=== PATIENT | female | born 1955 | race Caucasian/White ===

== ENCOUNTER 2016-05-19 10:24 | Emergency (ER) | payer MEDICAID ==
[2016-05-19 10:39] VITALS: BP 182/82; PULSE 52; RESP 16; TEMP 99.3; O2SAT 100
[2016-05-19] MEDS ORDERED: ONDANSETRON 4 MG/2 ML VIAL IVP ONE ×2 (11:11→16:51)
[2016-05-19] MEDS ORDERED: NS 1,000 ML IV ONE ×2 (11:12→12:55)
--- NOTE | 2016-05-19 11:21 | UCPHY ---
H & P Patient Type: New Chief Complaint Nursing Narrative: VOMITING SINCE 7 PM, CYCLIC VOMITING PATIENT , USES MEDICAL THC HPI/ROS: CHIEF COMPLAINT: Vomiting HISTORY OF PRESENT ILLNESS: This patient is a 60 year old woman, with a history of ulcerative colitis s/p ileostomy and cyclic vomiting syndrome, presenting with acute persistent vomiting, onset 7pm last night (approximately 15 hours ago ). She believes her vomiting started because she used less medical marijuana than she typically uses when her brother came to visit. Her symptoms are consistent with her cyclic vomiting presentation. Her ileostomy is functioning normally. She denies fever. She does not suspect that she is obstructed. She is followed by Santi Gonsales. He prescribes her 4mg Zofran, 1mg Lorazepam, and 25mg Chlorpromazine to take when she starts a cyclic vomiting pattern. She took the Zofran at home, but did not take the other two medications. Symptoms are moderate in severity. REVIEW OF SYSTEMS: A ten point review of systems was performed and is negative with the exception of the items mentioned in the HPI. Source: Patient Exam Limitations: No limitations - Personal History Current Tetanus Diphtheria and Acellular Pertussis (TDAP): Unsure - Medical/Surgical History Hx Asthma: No Hx Chronic Respiratory Disease: No Hx Diabetes: No Hx Cardiac Disease: No Hx Renal Disease: No Hx Cirrhosis: No Hx Alcoholism: No Hx HIV/AIDS: No Hx Splenectomy or Spleen Trauma: No Other PMH: ILEOSTOMY, L HIP REPLACEMENT - Family History Significant Family History: No pertinent family hx - Social History Smoking Status: Never smoked Alcohol Use: None Drug Use: Marijuana - Physical Exam Exam: General Appearance: Alert. Vital signs reviewed. BP 182/82 at triage. Eyes: Pupils equal and round, no conjunctival injection, no discharge. Anicteric. ENT, Mouth: Mucous membranes are moist, no oropharyngeal erythema or edema. Neck: No lymphadenopathy, supple. Respiratory: Lungs are clear to auscultation; no wheezes, rales, or rhonchi. Cardiovascular: Regular rate and rhythm; no murmur, rub, or gallop. Gastrointestinal: Abdomen is soft, mild epigastric tenderness, no masses or organomegaly, bowel sounds normal, ileostomy in place right abdomen, ileostomy site clean and dry. Skin: Warm and dry, no rashes on exposed skin, normal color. Back: Nontender to palpation over the thoracolumbar spine. No CVAT. Extremities: No lower extremity edema, no calf tenderness or swelling. Neurological: Alert and oriented. Moving all four extremities easily and equally. Psychiatric: Normal affect. Constitutional: Initial Vital Signs Temperature (C) 37.4 C 05/19/16 10:34 Heart Rate 52 L 05/19/16 10:34 Respiratory Rate 16 05/19/16 10:34 Blood Pressure 182/82 H 05/19/16 10:34 O2 Sat (%) 100 05/19/16 10:34 O2 Delivery Mode Room Air Allergies/Adverse Reactions: GLUTEN INTOLERANT Allergy (Severe, Uncoded 05/19/16 10:39) JOINT PAIN / STIFFNESS Home Medications: Medication Instructions Recorded Chlorpromazine HCl 05/19/16 LORAZEPAM 05/19/16 Ondansetron 05/19/16 Medical Decision Making ED Course/Re-evaluation: This patient presents with persistent vomiting, onset last night. History is significant for cyclic vomiting syndrome and ileostomy. She has no abdominal pain (aside from muscular discomfort from vomiting), bowel sounds are normal, and ileostomy is functioning properly. I have low suspicion for bowel obstruction. Her symptoms are consistent with her typical cyclical vomiting syndrome. An IV has been established. She has received 4mg IV Zofran and 1L IV normal saline. Her vomiting has improved after receiving the IV Zofran. She also received IV Ativan. 12:10 PM. Asleep. 1255: Re-evaluation. Patient is still asleep. No recurrent vomiting. 1340: Patient is still sleeping. I have woken her. She is very drowsy, falls asleep mid conversation. She denies complaints of nausea. Abdomen remains soft and nontender. The patient will be woken up more and road tested. 1430: While getting dressed to leave, the patient tried an ice chip and began vomiting again. IV Haldol has been administered. 4:00 p.m.: She is feeling much better after the Haldol. No further vomiting. She is tolerating ice chips. She has been up to the bathroom. I feel she is well enough to return home. On reexamination abdomen is soft and nontender. I do not suspect bowel obstruction. Differential Diagnosis: I considered a differential diagnosis that includes but is not limited to cyclic vomiting, gastritis, pancreatitis, cholecystitis, pyelonephritis, gastroenteritis, and bowel obstruction. - Data Points Medications Given: Discontinued Medications Haloperidol Lactate (Haldol Injection) 2 mg IVP EDNOW ONE Stop: 05/19/16 14:19 Last Admin: 05/19/16 14:48 Dose: 2 mg Sodium Chloride (Ns) 1,000 mls @ 3,000 mls/hr IV ONCE ONE Stop: 05/19/16 11:31 Last Admin: 05/19/16 11:12 Dose: 1,000 mls Sodium Chloride (Ns) 1,000 mls @ 0 mls/hr IV ONCE ONE PRN Reason: Wide Open Stop: 05/19/16 12:56 Last Admin: 05/19/16 12:57 Dose: 1,000 mls Ketorolac Tromethamine (Toradol) 15 mg IVP ONCE ONE Stop: 05/19/16 11:39 Last Admin: 05/19/16 11:49 Dose: 15 mg Lorazepam (Ativan Injection) 1 mg IVP EDNOW ONE Stop: 05/19/16 11:38 Last Admin: 05/19/16 11:50 Dose: 1 mg Ondansetron HCl (Zofran) 4 mg IVP EDNOW ONE Stop: 05/19/16 11:12 Last Admin: 05/19/16 11:13 Dose: 4 mg Ondansetron HCl (Zofran) 4 mg IVP EDNOW ONE Stop: 05/19/16 16:52 Last Admin: 05/19/16 16:54 Dose: 4 mg Departure - Departure Disposition: Home, Routine, Self-Care Clinical Impression: Cyclical vomiting syndrome Qualifiers: Vomiting Intractability: non-intractable Nausea presence: with nausea Qualified Code(s): G43.A0 - Cyclical vomiting, not intractable Condition: Good Instructions: Acute Nausea and Vomiting (ED) Additional Instructions: Clear liquids, small sips of fluids, and gradual diet advancement as tolerate. Take your Zofran, Ativan, and Chlorpromazine, as prescribed, as needed for recurrent symptoms. Return for intractable vomiting, abdominal pain, fever, or other concerns. Referrals: Santi Gonsales MD [Primary Care Provider] - As per Instructions - PQRS PQRS Measurement: Does not apply. Report Scribed for: Samantha Lee Report Scribed by: Ping Hill Date of Report: 05/19/16 Time of Report: 11:27 Physician Review and Approval Statement: 05/19/16 16:05 Portions of this note were transcribed by the medical reviewer. I, Dr. Samantha Lee, personally performed the history, physical exam, and medical decision- making; and confirmed the accuracy of the information in the transcribed note.
[2016-05-19] MEDS ORDERED: LORazepam 2 MG/ML INJ IVP ONE (11:37)
[2016-05-19] MEDS ORDERED: KETOROLAC 15 MG/1 ML SDV IVP ONE (11:38)
[2016-05-19] MEDS ORDERED: HALOPERIDOL LACT 5 MG/ML INJ IVP ONE (14:18)
== END 2016-05-19 17:30 | disposition home or self-care (01) ==
LOC: CED 10:24
DX: G43.A0 Cyclical vomiting, in migraine, not intractable (principal); Z93.2 Ileostomy status; Z96.642 Presence of left artificial hip joint
CPT/HCPCS: 96361-PO; 96374-PO; 96375-PO; 96376-PO; 99205-PO; G0463-PO; J1885; J2060; J2405

== ENCOUNTER 2016-05-23 11:40 | Inpatient (IN) | payer MEDICAID ==
--- NOTE | 2016-05-23 12:02 | EDPHY ---
H & P Stated Complaint: N/V since Saturday daquan;seen at [facility] on Sat;emesis dark;dark stool in ileostomy Time Seen by Provider: 05/23/16 11:46 HPI/ROS: CHIEF COMPLAINT: Continued nausea, black stools HISTORY OF PRESENT ILLNESS: 60-year-old female history of ulcerative colitis post ileostomy 1985 secondary to multiple malignant lesions and Or:, history of cyclic vomiting syndrome, seen at the [facility] 4 days ago for complaints of vomiting I which point she was given Haldol, antiemetic, IV hydration and discharged. She comes to the emergency department today noting that her stool in her ileostomy is black and has been for the past several days. She has not vomited several days but notes continued intermittent nausea which is controlled with oral Zofran. She is complaining of mild lightheadedness with no chest pain, dyspnea no palpitations, no back pain. No complaints of abdominal pain. PRIMARY CARE PROVIDER: Dr. Santi Gonsales. Patient has previously seen [facility] the [facility] 10 years ago REVIEW OF SYSTEMS: A ten point review of systems was performed and is negative with the exception of the items mentioned in the HPI PAST MEDICAL & SURGICAL HISTORY: ileostomy, ulcerative colitis, cyclic vomiting SOCIAL HISTORY: nonsmoker PHYSICAL EXAM (Prior to examination, patient consented to physical exam, hands were washed and my usual and customary physical exam procedures followed) 1) GENERAL: Well-developed, well-nourished, alert and oriented. Appears to be in no acute distress. 2) HEAD: Normocephalic, atraumatic 3) HEENT: Pupils equal, round, reactive to light bilaterally. Sclera anicteric. Nasopharynx, oropharynx, clear, no lesions. Moist mucous membranes. No gingival bleeding or fetid odor 4) NECK: Full range of motion, no meningeal signs. 5) LUNGS: Clear auscultation bilaterally, no wheezes, no rhonchi, no retractions. 6) HEART: Regular rate and rhythm, no murmur, no heave, no gallop. 7) ABDOMEN: No guarding, ileostomy is patent with black stool. no rebound, no focal tenderness, negative McBurney's, negative Elias's, negative Rovsing's, negative peritoneal sign, no distension 8) MUSCULOSKELETAL: Moving all extremities, no focal areas of tenderness, no obvious trauma. No peripheral edema or discoloration. 9) BACK: No CVA tenderness 10) SKIN: No rash, no petechiae. 11) Psychiatric: Patient is oriented X 3, there is no agitation. DIFFERENTIAL DIAGNOSIS: [in no particular include but limited to GI bleed, intractable nausea, Waleska-Pretty tear ,, bowel obstruction - Personal History Current Tetanus Diphtheria and Acellular Pertussis (TDAP): Yes - Medical/Surgical History Hx Asthma: No Hx Chronic Respiratory Disease: No Hx Diabetes: No Hx Cardiac Disease: No Hx Renal Disease: No Hx Cirrhosis: No Hx Alcoholism: No Hx HIV/AIDS: No Hx Splenectomy or Spleen Trauma: No Other PMH: ILEOSTOMY, L HIP REPLACEMENT, cyclic vomiting - Social History Smoking Status: Never smoked Constitutional: Initial Vital Signs Temperature (C) 36.4 C 05/23/16 11:42 Heart Rate 100 05/23/16 11:42 Respiratory Rate 18 05/23/16 11:42 Blood Pressure 124/80 H 05/23/16 11:42 O2 Sat (%) 98 05/23/16 11:42 O2 Delivery Mode Room Air Allergies/Adverse Reactions: GLUTEN INTOLERANT Allergy (Severe, Uncoded 05/23/16 11:41) JOINT PAIN / STIFFNESS Home Medications: Medication Instructions Recorded LORazepam [Ativan (*)] 1 mg PO TID PRN 05/19/16 Ondansetron HCl [Zofran] 8 mg PO Q6 PRN 05/19/16 chlorproMAZINE HCL [Chlorpromazine 25 mg PO Q6 PRN 05/19/16 HCl] Herbals/Supplements -Info Only 1 ea PO DAILY 05/23/16 Multivitamins [Multivitamin (*)] 1 each PO DAILY 05/23/16 [place]-3 Fatty Acids [Fish Oil 1000 1,000 mg PO DAILY 05/23/16 mg (*)] Medical Decision Making ED Course/Re-evaluation: 12:50 p.m.: Discussed case Dr. Rajan Borrego. Patient has had ongoing symptoms for several days and remains symptomatic. She has had no complaints of abdominal pain, her abdomen is soft with no guarding, no rebound, no focal tenderness and she has a patent ileostomy . Doubt obstruction. Phone consultation with hospitalist Rosemarie, admit to Dr. Sebastian for hypokalemia, intractable nausea and vomiting, volume depletion . Patient has been given IV fluid hydration, potassium supplementation, proton pump inhibitor. 12:58 p.m.: Phone consultation with the patient's primary care provider Dr. Santi Gonsales who agrees with plan for admission - Data Points Laboratory Results: Laboratory Results 05/23/16 12:05 05/23/16 12:05 05/23/16 05/23/16 12:05 12:05 WBC 8.47 10^3/uL 10^3/uL (3.80-9.50) RBC 4.81 10^6/uL 10^6/uL (4.18-5.33) Hgb 14.0 g/dL g/dL (12.6-16.3) Hct 37.9 % L % (38.0-47.0) MCV 78.8 fL L fL (81.5-99.8) MCH 29.1 pg pg (27.9-34.1) MCHC 36.9 g/dL H g/dL (32.4-36.7) RDW 13.7 % % (11.5-15.2) Plt Count 295 10^3/uL 10^3/uL (150-400) MPV 9.2 fL fL (8.7-11.7) Neut % (Auto) 74.5 % H % (39.3-74.2) Lymph % (Auto) 15.7 % % (15.0-45.0) [place] % (Auto) 8.4 % % (4.5-13.0) Eos % (Auto) 0.7 % % (0.6-7.6) Baso % (Auto) 0.5 % % (0.3-1.7) Nucleat RBC Rel Count 0.0 % % (0.0-0.2) Absolute Neuts (auto) 6.31 10^3/uL 10^3/uL (1.70-6.50) Absolute Lymphs (auto) 1.33 10^3/uL 10^3/uL (1.00-3.00) Absolute Monos (auto) 0.71 10^3/uL 10^3/uL (0.30-0.80) Absolute Eos (auto) 0.06 10^3/uL 10^3/uL (0.03-0.40) Absolute Basos (auto) 0.04 10^3/uL 10^3/uL (0.02-0.10) Absolute Nucleated RBC 0.00 10^3/uL 10^3/uL (0-0.01) Immature Gran % 0.2 % % (0.0-1.1) Immature Gran # 0.02 10^3/uL 10^3/uL (0.00-0.10) Sodium 135 mEq/L mEq/L (134-144) Potassium 2.6 mEq/L L* mEq/L (3.5-5.2) Chloride 96 mEq/L L mEq/L (97-110) Carbon Dioxide 27 mEq/l mEq/l (22-31) Anion Gap 12 mEq/L mEq/L (8-16) BUN 13 mg/dL mg/dL (7-23) Creatinine 0.8 mg/dL mg/dL (0.6-1.0) Estimated GFR > 60 Glucose 137 mg/dL H mg/dL (70-100) Calcium 9.0 mg/dL mg/dL (8.5-10.4) Total Bilirubin 1.0 mg/dL mg/dL (0.1-1.4) Conjugated Bilirubin 0.4 mg/dL mg/dL (0.0-0.5) Unconjugated Bilirubin 0.6 mg/dL mg/dL (0.0-1.1) AST 13 IU/L L IU/L (14-46) ALT 27 IU/L IU/L (9-52) Alkaline Phosphatase 104 IU/L IU/L (38-126) Total Protein 7.3 g/dL g/dL (6.3-8.2) Albumin 4.2 g/dL g/dL (3.5-5.0) Lipase 51.0 IU/L IU/L (23-300) Medications Given: Discontinued Medications Pantoprazole Sodium 40 mg/ (Sodium Chloride) 100 mls @ 200 mls/hr IV EDNOW ONE Stop: 05/23/16 13:20 Last Admin: 05/23/16 13:08 Dose: 100 mls Potassium Chloride (Potassium Cl 10 Meq (Premix)) 100 mls @ 100 mls/hr IV EDNOW ONE Stop: 05/23/16 14:40 Last Admin: 05/23/16 13:50 Dose: 100 mls Lorazepam (Ativan Injection) 1 mg IVP EDNOW ONE Stop: 05/23/16 12:45 Last Admin: 05/23/16 12:59 Dose: 1 mg Ondansetron HCl (Zofran) 4 mg IVP EDNOW ONE Stop: 05/23/16 12:45 Last Admin: 05/23/16 12:59 Dose: 4 mg Departure - Departure Disposition: [facility] Inpatient Acute Clinical Impression: Hypokalemia GI bleed Qualifiers: GI bleed type/associated pathology: unspecified gastrointestinal hemorrhage type Qualified Code(s): K92.2 - Gastrointestinal hemorrhage, unspecified Intractable vomiting with nausea Qualifiers: Vomiting type: cyclical vomiting Qualified Code(s): G43.A1 - Cyclical vomiting , intractable Condition: Fair
[2016-05-23 12:16] LABS: % IMMATURE GRANULYOCYTES 0.2 % (0.0-1.1); ABSOLUTE IMMATURE GRANULOCYTES 0.02 10^3/uL (0.00-0.10); ADD DIFF? NO; ADD MORPH? NO; ADD SCAN? NO; ATYPICAL LYMPHOCYTE FLAG 10 (0-99); FRAGMENT RBC FLAG 0 (0-99); HEMATOCRIT 37.9 % (38.0-47.0); LEFT SHIFT FLG 0 (0-99); LIPEMIA HEMOLYSIS FLAG 90 (0-99); MEAN CELL HEMOGLOBIN 29.1 pg (27.9-34.1); MEAN CELL HEMOGLOBIN CONCENTR. 36.9 g/dL (32.4-36.7); MEAN CELL VOLUME 78.8 fL (81.5-99.8); MEAN PLATELET VOLUME 9.2 fL (8.7-11.7); PLATELET CLUMPS FLAG 0 (0-99); PLATELET COUNT 295 10^3/uL (150-400); RED BLOOD CELL COUNT 4.81 10^6/uL (4.18-5.33); RED CELL DISTRIBUTION WIDTH 13.7 % (11.5-15.2)
[2016-05-23 12:36] LABS: ALANINE AMINOTRANSFERASE 27 IU/L (9-52); ALBUMIN 4.2 g/dL (3.5-5.0); ALKALINE PHOSPHATASE 104 IU/L (38-126); ANION GAP 12 mEq/L (8-16); ASPARTATE AMINOTRANSFERASE 13 IU/L (14-46); BILIRUBIN-CONJUGATED 0.4 mg/dL (0.0-0.5); BILIRUBIN-UNCONJUGATED 0.6 mg/dL (0.0-1.1); CARBON DIOXIDE 27 mEq/l (22-31); CHLORIDE 96 mEq/L (97-110); CREATININE 0.8 mg/dL (0.6-1.0); GLOMERULAR FILTRATION RATE > 60; GLUCOSE 137 mg/dL (70-100); SODIUM 135 mEq/L (134-144); TOTAL PROTEIN 7.3 g/dL (6.3-8.2)
[2016-05-23 12:40] LABS: POTASSIUM 2.6 mEq/L (3.5-5.2)
[2016-05-23] MEDS ORDERED: LORazepam 2 MG/ML INJ IVP ONE (12:44)
[2016-05-23] MEDS ORDERED: ONDANSETRON 4 MG/2 ML VIAL IVP ONE (12:44)
[2016-05-23] MEDS ORDERED: LORazepam 2 MG/ML INJ ONE (12:45)
[2016-05-23] MEDS ORDERED: PANTOPRAZOLE SODIUM 40 MG in NS 100 ML IV ONE (12:51)
[2016-05-23] MEDS ORDERED: POTASSIUM Cl (KCl) 100 ML IV ONE ×2 (13:04→13:41)
[2016-05-23] MEDS ORDERED: ONDANSETRON 4 MG/2 ML VIAL IVP PRN (13:54)
[2016-05-23] MEDS ORDERED: ACETAMINOPHEN 325 MG TAB PO PRN (13:54)
[2016-05-23] MEDS ORDERED: ONDANSETRON DISINTEGRATING 4 MG TAB PO PRN (13:54)
[2016-05-23] MEDS ORDERED: MAGNESIUM SULF 2 GM/WATER 50 ML IV ONE (14:04)
[2016-05-23] MEDS ORDERED: chlorproMAZINE HCL 25 MG TAB PO PRN (14:05)
--- NOTE | 2016-05-23 14:10 | PDGENHP ---
History and Physical - Chief Complaint Acute melena - History of Present Illness PCP: Dr. Gonsales HPI: 60-year-old female presenting with acute melena characterized as black stool present in her ostomy bag with onset of symptoms approximately 4 days ago and duration persistent thereafter. Patient reports that she had associated 24 hours aggressive vomiting prior to her onset of symptoms as well as subsequent nausea and lightheadedness. Her nausea and vomiting were reportedly alleviated with Haldol, Zofran, IV fluids that she received at urgent care. She reports that her abdominal symptoms are somewhat exacerbated by oral intake and consequently she has had very little to eat over the last 4 days. Prior to her onset of the vomiting, the patient ate a fried clam role and she reports that the after mentioned symptoms began immediately thereafter. Reports that prior to her onset of symptoms, the patient has chronically managed nausea with oral Compazine and Zofran. She otherwise denies any other infectious symptoms. History Information - Allergies/Home Medication List Allergies/Adverse Reactions: GLUTEN INTOLERANT Allergy (Severe, Uncoded 05/23/16 11:41) JOINT PAIN / STIFFNESS Home Medications: LORazepam [Ativan (*)] 1 mg PO TID PRN 05/19/16 [Last Taken Unknown] Ondansetron HCl [Zofran] 8 mg PO Q6 PRN 05/19/16 [Last Taken 05/23/16 10:00] chlorproMAZINE HCL [Chlorpromazine HCl] 25 mg PO Q6 PRN 05/19/16 [Last Taken Unknown] Herbals/Supplements -Info Only 1 ea PO DAILY 05/23/16 [Last Taken Unknown] Multivitamins [Multivitamin (*)] 1 each PO DAILY 05/23/16 [Last Taken 05/16/16] [place]-3 Fatty Acids [Fish Oil 1000 mg (*)] 1,000 mg PO DAILY 05/23/16 [Last Taken 05/16/16] I have personally reviewed and updated: family history, medical history, social history, surgical history - Past Medical History Additional medical history: Ulcerative colitis. Reports of possible cyclic vomiting - Surgical History Additional surgical history: Ileostomy in 1984. Left total hip replacement. Tonsillectomy. Last upper endoscopy in 2010 - Family History Additional family history: father and brother with psoriasis, no family history of any GI issues - Social History Smoking Status: Never smoked Alcohol Use: None Drug Use: None Additional social history: independent in her ADLs Review of Systems ROS: 10pt was reviewed & negative except for what was stated in HPI & below Gastrointestinal: Reports: vomitting, black stools, nausea Physical Exam Temp Pulse Resp BP Pulse Ox 36.4 C 72 16 153/99 H 100 05/23/16 11:42 05/23/16 13:23 05/23/16 13:23 05/23/16 13:23 05/23/16 13:23 Constitutional: no apparent distress, appears nourished, not in pain Eyes: PERRL, anicteric sclera, EOMI Ears, Nose, Mouth, Throat: moist mucous membranes, hearing normal, ears appear normal, no oral mucosal ulcers Cardiovascular: regular rate and rhythym, no murmur, rub, or gallop, No tachycardia, No edema Respiratory: no respiratory distress, no rales or rhonchi, clear to auscultation Gastrointestinal: normoactive bowel sounds, other ( ostomy bag in place), No tenderness, No guarding, No distension Skin: warm, normal color, no rashes or abrasions, no fluctuance, no induration, No mottled Neurologic: AAOx3, sensation intact bilaterally, No weakness Psychiatric: interacting appropriately, not anxious, not encephalopathic, thought process linear Lab Data & Imaging Review 05/23/16 12:05 05/23/16 12:05 WBC 8.47 10^3/uL (3.80-9.50) 05/23/16 12:05 RBC 4.81 10^6/uL (4.18-5.33) 05/23/16 12:05 Hgb 14.0 g/dL (12.6-16.3) 05/23/16 12:05 Hct 37.9 % (38.0-47.0) L 05/23/16 12:05 MCV 78.8 fL (81.5-99.8) L 05/23/16 12:05 MCH 29.1 pg (27.9-34.1) 05/23/16 12:05 MCHC 36.9 g/dL (32.4-36.7) H 05/23/16 12:05 RDW 13.7 % (11.5-15.2) 05/23/16 12:05 Plt Count 295 10^3/uL (150-400) 05/23/16 12:05 MPV 9.2 fL (8.7-11.7) 05/23/16 12:05 Neut % (Auto) 74.5 % (39.3-74.2) H 05/23/16 12:05 Lymph % (Auto) 15.7 % (15.0-45.0) 05/23/16 12:05 [place] % (Auto) 8.4 % (4.5-13.0) 05/23/16 12:05 Eos % (Auto) 0.7 % (0.6-7.6) 05/23/16 12:05 Baso % (Auto) 0.5 % (0.3-1.7) 05/23/16 12:05 Nucleat RBC Rel Count 0.0 % (0.0-0.2) 05/23/16 12:05 Absolute Neuts (auto) 6.31 10^3/uL (1.70-6.50) 05/23/16 12:05 Absolute Lymphs (auto) 1.33 10^3/uL (1.00-3.00) 05/23/16 12:05 Absolute Monos (auto) 0.71 10^3/uL (0.30-0.80) 05/23/16 12:05 Absolute Eos (auto) 0.06 10^3/uL (0.03-0.40) 05/23/16 12:05 Absolute Basos (auto) 0.04 10^3/uL (0.02-0.10) 05/23/16 12:05 Absolute Nucleated RBC 0.00 10^3/uL (0-0.01) 05/23/16 12:05 Immature Gran % 0.2 % (0.0-1.1) 05/23/16 12:05 Immature Gran # 0.02 10^3/uL (0.00-0.10) 05/23/16 12:05 Sodium 135 mEq/L (134-144) 05/23/16 12:05 Potassium 2.6 mEq/L (3.5-5.2) L* 05/23/16 12:05 Chloride 96 mEq/L (97-110) L 05/23/16 12:05 Carbon Dioxide 27 mEq/l (22-31) 05/23/16 12:05 Anion Gap 12 mEq/L (8-16) 05/23/16 12:05 BUN 13 mg/dL (7-23) 05/23/16 12:05 Creatinine 0.8 mg/dL (0.6-1.0) 05/23/16 12:05 Estimated GFR > 60 05/23/16 12:05 Glucose 137 mg/dL (70-100) H 05/23/16 12:05 Calcium 9.0 mg/dL (8.5-10.4) 05/23/16 12:05 Total Bilirubin 1.0 mg/dL (0.1-1.4) 05/23/16 12:05 Conjugated Bilirubin 0.4 mg/dL (0.0-0.5) 05/23/16 12:05 Unconjugated Bilirubin 0.6 mg/dL (0.0-1.1) 05/23/16 12:05 AST 13 IU/L (14-46) L 05/23/16 12:05 ALT 27 IU/L (9-52) 05/23/16 12:05 Alkaline Phosphatase 104 IU/L (38-126) 05/23/16 12:05 Total Protein 7.3 g/dL (6.3-8.2) 05/23/16 12:05 Albumin 4.2 g/dL (3.5-5.0) 05/23/16 12:05 Lipase 51.0 IU/L (23-300) 05/23/16 12:05 Stool Occult Bld Scrn POSITIVE (NEGATIVE) H 05/23/16 Unknown Assessment & Plan Assessment: 60-year-old female presents with acute melena in the setting of nausea and vomiting complicated by acute hypokalemia Plan: 1. Melena. Acute, new problem this provider, further workup indicated. Suspect upper gastrointestinal hemorrhage secondary to either Waleska-Pretty tear in the setting of nausea and vomiting versus duodenitis -reviewed outside records including 04/20/2010 upper endoscopy report by Dr. Davidson reporting that the patient had duodenitis with chronic inflammation on biopsy -fecal occult blood test positive -no evidence of significant anemia or hypotension -will monitor for any evidence of worsening and if so will repeat hemoglobin and hematocrit level -will discuss with Gastroenterology and consider upper endoscopy in a.m. -proceed with IV PPI twice daily -continue NPO with ice chips and sips 2. Nausea and vomiting. Acute, potentially secondary to food source at the beginning of her symptoms versus acute worsening of chronic nausea symptoms versus upper GI ulcer -antiemetics, IV and orally once tolerated -IV fluids 3. Hypokalemia. Acute, secondary to patient's inability to tolerate oral solids and liquids over the past several days, resulting in overt hypokalemia, severe -placed on telemetry to ensure no a arrhythmias -discussed with Christoph hazel, emergency department provider, reports to me that patient will receive 20 mEq of IV potassium -will continue on normal saline with supplemental potassium as well as 2 g of magnesium -repeat potassium and magnesium level at 6:00 p.m. as well as tomorrow a.m. and replete as necessary Diet. NPO with sips and chips Prophylaxis. Low risk patient, SCDs Code. Full Disposition. Anticipated discharge is 05/24/2016, pending further workup and resolution of above. If patient requires greater than 48 hours inpatient hospitalization for reasonable medical necessity, she will be upgraded to inpatient admission status at that time.
[2016-05-23] MEDS: POTASSIUM Cl (KCl) 40 MEQ in NS 1,000 ML IV SCH ×2 (15:27→22:34)
[2016-05-23] MEDS ORDERED: fentaNYL 100 MCG/2 ML INJ ONE (16:59)
[2016-05-23] MEDS ORDERED: PROPOFOL/EMULSION 500 MG/50 ML BOTTLE IV ONE (16:59)
[2016-05-23] MEDS ORDERED: LIDOCAINE 2% 5 ML SDV ONE (17:09)
[2016-05-23] MEDS ORDERED: MIDAZOLAM 2 MG/2 ML VIAL ONE (17:10)
[2016-05-23] MEDS ORDERED: ONDANSETRON 4 MG/2 ML VIAL ONE (17:12)
--- NOTE | 2016-05-23 17:41 | SOAPPROG ---
SOAP Progress Note Assessment/Plan: Assessment: Plan: 05/23/16 17:40 GI note S/p EGD with biopsy. Severe ulcerative esophagitis. No active bleeding. Recommend PPI BID. Restart diet. Ok to discharge tonight or in am from GI perspective. Objective: Vital Signs Temp Pulse Resp BP Pulse Ox 36.9 C 70 18 132/91 H 98 05/23/16 14:54 05/23/16 14:54 05/23/16 14:54 05/23/16 14:54 05/23/16 14:54 ICD10 Worksheet Patient Problems: Problems Problem Status Onset Cyclical vomiting syndrome Acute GI bleed Acute Intractable vomiting with nausea Acute Hypokalemia Acute
[2016-05-23] MEDS: LORazepam 1 MG TAB PO PRN (18:41)
[2016-05-23 19:12] LABS: MAGNESIUM 2.8 mg/dL (1.6-2.3); POTASSIUM 2.9 mEq/L (3.5-5.2)
[2016-05-23] MEDS ORDERED: PROTOCOL POTASSIUM 1 DOSE MISC PRN (19:40)
[2016-05-23] MEDS ORDERED: POTASSIUM CL 10 MEQ TAB PO ONE (19:43)
--- NOTE | 2016-05-23 20:53 | GPN ---
[f rep st] PROCEDURE NOTE DATE OF PROCEDURE: 05/23/2016 PROCEDURE: Esophagogastroduodenoscopy with biopsy. INDICATION: The patient is a 60-year-old female who presents for evaluation of nausea, vomiting, and blood in her stools. CONSENT: Risks, benefits, and alternatives of the procedure were discussed in great detail with the patient. The risk of infection, bleeding, perforation, and sedation were discussed. All questions answered. Informed consent was obtained. MEDICATIONS: Propofol. Please see Anesthesiology record for details. ESTIMATED BLOOD LOSS: Insignificant. ESOPHAGOGASTRODUODENOSCOPY EXAMINATION: The Olympus upper endoscope was introduced into the mouth and advanced to the esophagus. The proximal and mid esophagus were normal in appearance. In the distal esophagus, circumferential ulcerations were seen, consistent with LA grade D esophagitis. There was mild nodularity on the gastric side of the gastroesophageal junction. Biopsies taken. The stomach was entered and closely examined, including retroflexed views of angularis, cardia and fundus. The patient was noted to have a hiatal hernia. The mucosa in the antrum and the body of the stomach was erythematous and biopsies were taken. The duodenal bulb and second portion of the duodenum were normal in appearance. IMPRESSION: 1. Ulcerative esophagitis. I suspect that this is the cause of her episode of nausea, vomiting, as well as her melanotic stools. 2. Gastritis, status post biopsy. 3. Hiatal hernia. RECOMMENDATIONS: 1. At this time, I would recommend a full dose PPI therapy twice a day for 6 weeks. Will need a repeat EGD in approximately 10 weeks to ensure healing as well as well as for repeat biopsies to rule out Thayer's esophagus. 2. I suspect that her esophagitis may be playing a role in her previous episodes of nausea and vomiting. 3. Await biopsy results. 4. Start clear liquid diet. If tolerated diet, discharge home soon? /[id number]/MODL [id number]
[2016-05-23] MEDS: PANTOPRAZOLE SODIUM 40 MG TAB PO SCH (20:59)
[2016-05-23] MEDS ORDERED: PANTOPRAZOLE SODIUM 40 MG in NS 100 ML IV SCH (21:00)
--- NOTE | 2016-05-23 21:28 | GCON ---
[f rep st] CONSULTATION DATE OF CONSULTATION: 05/23/2016 REASON FOR CONSULTATION: Nausea and vomiting/melenic stools. HISTORY OF PRESENT ILLNESS: Nikki is a 60-year-old female with a history of ulcerative colitis status post colectomy who presents to [facility] with complaints of melenic stools, nausea, and vomiting. The patient was in her normal state of health until approximately 4 days ago when she started to experience significant episodes of nausea and vomiting. She vomited numerous times. She believes her symptoms are worsened by oral intake. Her symptoms were improved with Haldol. She started to experience black melenic stools through her ostomy. She has had similar episodes of nausea and vomiting in the last several years. She has had approximately 2 episodes in the last 3 years. She was told that she had cyclical nausea and vomiting syndrome previously. I am being asked by Dr. Sebastian to see the patient in consultation regarding her nausea, vomiting as well as melenic stools. PAST MEDICAL HISTORY: Ulcerative colitis. PAST SURGICAL HISTORY: Total colectomy in 1984, left total hip replacement, tonsillectomy. ALLERGIES: No known drug allergies. MEDICATIONS: Lorazepam, Zofran, herbal supplements, omega-3. SOCIAL HISTORY: Smokes marijuana. No significant alcohol or tobacco use. Her son is a radiologist in [place]. FAMILY HISTORY: Mom of lung cancer. REVIEW OF SYSTEMS: A 12-point comprehensive review of systems was asked. Pertinent positive and negatives per HPI. PHYSICAL EXAM: VITAL SIGNS: Blood pressure 144/89, heart rate 75, respirations 20, temperature 37.1. HEENT: Anicteric sclerae. Moist mucosa. NECK: No JVD. CARDIOVASCULAR: Regular rate and rhythm. Positive S1, S2. LUNGS: Clear to auscultation bilaterally. No wheezes, rales, or rhonchi. ABDOMEN: Soft. Mild tenderness in midepigastrium. No guarding. No rebound. Positive bowel sounds. EXTREMITIES: No clubbing, cyanosis or edema. NEURO: 2 through 12 grossly intact. PSYCHIATRIC: Normal affect. MUSCULOSKELETAL: No joint effusions or deformities. SKIN: No rash. BLOOD WORK: WBC 8.47, hematocrit 37.9, hemoglobin 14.0, platelets 295. Sodium 135, potassium 2.6, chloride 96, BUN 13, creatinine 0.8, glucose 137, AST 13, ALT 17, alkaline phosphatase 104, lipase 51. Stool Hemoccult positive. ASSESSMENT AND PLAN: 1. Nausea and vomiting- with melenic stools. Etiology? Peptic ulcer disease versus esophagitis versus [place]-Pretty tear versus other? At this time, I recommend to proceed with upper endoscopy to delineate the cause of her symptoms. The risks, benefits, and alternatives of the procedure were discussed in detail with the patient. Risks of infection, bleeding, perforation , and sedation were discussed. All questions answered. Informed consent obtained. Thank you very much for this consultation. /[id number]/MODL MTDD
[2016-05-24] MEDS: ONDANSETRON DISINTEGRATING 4 MG TAB PO PRN ×2 (02:53→08:15)
[2016-05-24] MEDS: LORazepam 2 MG/ML INJ IVP PRN ×3 (03:35→23:52)
[2016-05-24] MEDS: POTASSIUM Cl (KCl) 40 MEQ in NS 1,000 ML IV SCH ×3 (05:00→19:49)
[2016-05-24 05:12] LABS: % IMMATURE GRANULYOCYTES 1.1 % (0.0-1.1); ABSOLUTE IMMATURE GRANULOCYTES 0.07 10^3/uL (0.00-0.10); ADD DIFF? NO; ADD MORPH? NO; ADD SCAN? NO; ATYPICAL LYMPHOCYTE FLAG 20 (0-99); FRAGMENT RBC FLAG 0 (0-99); HEMATOCRIT 29.5 % (38.0-47.0); HEMOGLOBIN 10.4 g/dL (12.6-16.3); LEFT SHIFT FLG 10 (0-99); LIPEMIA HEMOLYSIS FLAG 90 (0-99); MEAN CELL HEMOGLOBIN 28.9 pg (27.9-34.1); MEAN CELL HEMOGLOBIN CONCENTR. 35.3 g/dL (32.4-36.7); MEAN CELL VOLUME 81.9 fL (81.5-99.8); MEAN PLATELET VOLUME 9.2 fL (8.7-11.7); PLATELET CLUMPS FLAG 0 (0-99); PLATELET COUNT 208 10^3/uL (150-400)
[2016-05-24 05:36] LABS: ANION GAP 4 mEq/L (8-16); CALCIUM 8.2 mg/dL (8.5-10.4); CARBON DIOXIDE 20 mEq/l (22-31); CHLORIDE 111 mEq/L (97-110); CREATININE 0.7 mg/dL (0.6-1.0); GLOMERULAR FILTRATION RATE > 60; GLUCOSE 105 mg/dL (70-100); MAGNESIUM 2.2 mg/dL (1.6-2.3); POTASSIUM 3.5 mEq/L (3.5-5.2); SODIUM 135 mEq/L (134-144)
[2016-05-24] MEDS ORDERED: POTASSIUM CL 10 MEQ TAB PO ONE (07:32)
[2016-05-24] MEDS ORDERED: Herbals/Supplements -Info Only PO SCH (09:00)
[2016-05-24] MEDS: MULTIVITAMINS 1 EACH TAB PO SCH (09:52)
[2016-05-24] MEDS: OMEGA-3 FATTY ACIDS 1,000 MG CAP PO SCH (09:52)
[2016-05-24] MEDS: PANTOPRAZOLE SODIUM 40 MG TAB PO SCH (09:53)
[2016-05-24] MEDS: PROMETHAZINE HCL 25 MG TAB PO PRN ×2 (11:16→20:55)
[2016-05-24] MEDS: POTASSIUM Cl (KCl) 100 ML IV SCH ×3 (11:19→18:15)
[2016-05-24] MEDS ORDERED: PANTOPRAZOLE SODIUM 40 MG in NS 100 ML IV SCH (13:30)
[2016-05-24] MEDS ORDERED: POTASSIUM Cl (KCl) 10 MEQ/100 ML BAG IV ONE ×2 (15:44→18:05)
--- NOTE | 2016-05-24 17:04 | SOAPPROG ---
SOAP Progress Note Assessment/Plan: Assessment: Plan: 05/23/16 17:40 GI note S/p EGD with biopsy. Severe ulcerative esophagitis. No active bleeding. Recommend PPI BID. Restart diet. Ok to discharge tonight or in am from GI perspective. 05/24/16 17:01 A/P 1. Nausea and vomiting- with severe esophagitis on EGD. Slowly improving? She is frustrated. Change to PPI infusion. Ok for phenergan/zofran. 05/24/16 17:04 Subjective: cc: follow up on nausea and vomiting. 10% improvement. Tolerated breakfast. Had episode of vomiting. Frustrated. Objective: Vital Signs Temp Pulse Resp BP Pulse Ox 37.7 C 62 18 130/87 H 97 05/24/16 16:00 05/24/16 16:00 05/24/16 16:00 05/24/16 16:00 05/24/16 16:00 Laboratory Results 05/24/16 04:56 05/24/16 04:56 05/23/16 05/24/16 05/25/16 05:59 05:59 05:59 Intake Total 2730 Output Total 1000 1030 Balance 1730 -1030 Physical Exam - Physical Exam General Appearance: alert, mild distress EENT: No scleral icterus (R), No scleral icterus (L) Respiratory: lungs clear, normal breath sounds, No crackles, No rales, No rhonchi Cardiac/Chest: regular rate, rhythm, No diastolic murmur, No systolic murmur, No irregularly irregular Abdomen: non-tender, soft, No distended, No guarding, No rebound Skin: normal color Neuro/Psych: normal mood/affect, oriented x 3 ICD10 Worksheet Patient Problems: Problems Problem Status Onset GI bleed Acute Hypokalemia Acute Intractable vomiting with nausea Acute Cyclical vomiting syndrome Acute
--- NOTE | 2016-05-24 17:22 | HOSPPROG ---
Hospitalist Progress Note Assessment/Plan: 60 yo female presents with acute melena, n.v. h/o ulcerative colitis. Patient new to me today 1. Melena. EGD shows esophageal ulceration which is likely the source of the melena. She is currently placed on IV Protonix and I will add Carafate could she is continues to have pain in the epigastric region. She has had 1 episode of nausea and vomiting. 2. Nausea and vomiting. This may be improving as she has had only 1 episode today. Continues to have epigastric pain. 3. Hypokalemia. Potassium is increased from 2.6-3.5 and we continue to do replacement. 4. Anemia work with hemoglobin falling from 14.0-10.4. Part of this is probably dilutional. The ostomy output is no longer bloody. Will follow daily hemoglobin. 5. Diet will be increased from clears to as tolerated. 6. DVT prophylaxis will be with SCDs. She is low risk patient. 7. Disposition: This is now day today. She continues to have nausea and abdominal pain. No planned date of discharge is known Subjective: continues to have some nausea 1 episode of vomiting and continues to have epigastric pain no chest pain or shortness of breath. The ostomy output is no longer bloody. Objective: Vital Signs Temp Pulse Resp BP Pulse Ox 37.7 C 62 18 130/87 H 97 05/24/16 16:00 05/24/16 16:00 05/24/16 16:00 05/24/16 16:00 05/24/16 16:00 Laboratory Results 05/24/16 04:56 05/24/16 04:56 05/23/16 05/24/16 05/25/16 05:59 05:59 05:59 Intake Total 2730 Output Total 1000 1030 Balance 1730 -1030 - Time Spent With Patient Time Spent with Patient: greater than 35 minutes Time Spent with Patient: Greater than 35 minutes spent on this patients care, greater than 50% of time spent counseling, educating, and coordinating care regarding the above mentioned plan. - Pending Discharge Pending Discharge Within 24 Hours: No Pending Discharge Within 48 Hours: Yes Pending Discharge Date: 05/26/16 Pending Discharge Time: 11:00 - Physical Exam Constitutional: no apparent distress Eyes: PERRL, anicteric sclera Ears, Nose, Mouth, Throat: moist mucous membranes Cardiovascular: regular rate and rhythym, no murmur, rub, or gallop Respiratory: no respiratory distress, no rales or rhonchi Gastrointestinal: other ( Epigastric tenderness without a palpable or pulsatile mass. Bowel sounds are normal.) Genitourinary: no bladder fullness Skin: warm Neurologic: AAOx3, CN II-XII Intact ICD10 Worksheet Patient Problems: Problems Problem Status Onset GI bleed Acute Hypokalemia Acute Intractable vomiting with nausea Acute Cyclical vomiting syndrome Acute
[2016-05-24] MEDS: PANTOPRAZOLE SODIUM 80 MG in NS 100 ML IV SCH (18:14)
[2016-05-24 21:03] LABS: POTASSIUM 4.9 mEq/L (3.5-5.2)
[2016-05-25] MEDS: POTASSIUM Cl (KCl) 40 MEQ in NS 1,000 ML IV SCH (02:22)
[2016-05-25] MEDS: PROMETHAZINE HCL 25 MG TAB PO PRN (04:15)
[2016-05-25] MEDS: PANTOPRAZOLE SODIUM 80 MG in NS 100 ML IV SCH ×2 (04:16→15:23)
[2016-05-25] MEDS: LORazepam 2 MG/ML INJ IVP PRN (04:34)
[2016-05-25 05:23] LABS: % IMMATURE GRANULYOCYTES 0.8 % (0.0-1.1); ABSOLUTE IMMATURE GRANULOCYTES 0.05 10^3/uL (0.00-0.10); ADD DIFF? NO; ADD MORPH? NO; ADD SCAN? NO; ATYPICAL LYMPHOCYTE FLAG 0 (0-99); FRAGMENT RBC FLAG 0 (0-99); HEMATOCRIT 30.6 % (38.0-47.0); HEMOGLOBIN 10.2 g/dL (12.6-16.3); LEFT SHIFT FLG 10 (0-99); LIPEMIA HEMOLYSIS FLAG 80 (0-99); MEAN CELL HEMOGLOBIN 28.3 pg (27.9-34.1); MEAN CELL HEMOGLOBIN CONCENTR. 33.3 g/dL (32.4-36.7); MEAN PLATELET VOLUME 8.9 fL (8.7-11.7); PLATELET CLUMPS FLAG 0 (0-99); PLATELET COUNT 214 10^3/uL (150-400); RED CELL DISTRIBUTION WIDTH 14.4 % (11.5-15.2)
[2016-05-25 05:47] LABS: ANION GAP 7 mEq/L (8-16); CALCIUM 8.7 mg/dL (8.5-10.4); CARBON DIOXIDE 23 mEq/l (22-31); CHLORIDE 110 mEq/L (97-110); CREATININE 0.7 mg/dL (0.6-1.0); GLOMERULAR FILTRATION RATE > 60; GLUCOSE 92 mg/dL (70-100); POTASSIUM 5.3 mEq/L (3.5-5.2); SODIUM 140 mEq/L (134-144)
[2016-05-25] MEDS ORDERED: NS 1,000 ML IV SCH (06:30)
[2016-05-25 07:49] VITALS: TEMP 98.8
--- NOTE | 2016-05-25 08:13 | SOAPPROG ---
SOAP Progress Note Assessment/Plan: Assessment: Plan: 05/23/16 17:40 GI note S/p EGD with biopsy. Severe ulcerative esophagitis. No active bleeding. Recommend PPI BID. Restart diet. Ok to discharge tonight or in am from GI perspective. 05/24/16 17:01 A/P 1. Nausea and vomiting- with severe esophagitis on EGD. Slowly improving? She is frustrated. Change to PPI infusion. Ok for phenergan/zofran. 05/24/16 17:04 05/25/16 08:10 A/P 1. Nausea- with vomiting. Severe esophagitis. Improving. Did have episode of vomiting last night but overall feeling well. She thinks the Ativan helped her symptoms. She wants to go home this afternoon if she feels ok. Recommend PPI BID on discharge, ativan, and antinausea medication. Repeat EGD in 10 weeks to ensure healing/r/o Barretts esophagus. Subjective: cc: Follow up nausea and vomiting Had episode of vomiting last night. She thinks she is improving with the Ativan. Frustrated Objective: Vital Signs Temp Pulse Resp BP Pulse Ox 37.1 C 68 16 121/71 H 100 05/25/16 07:47 05/25/16 07:47 05/25/16 07:47 05/25/16 07:47 05/25/16 07:47 Laboratory Results 05/25/16 05:02 05/25/16 05:02 05/24/16 05/25/16 05/26/16 05:59 05:59 05:59 Intake Total 2730 800 5092 Output Total 1000 4390 750 Balance 1730 -6528 4342 Physical Exam - Physical Exam General Appearance: alert, no apparent distress EENT: No scleral icterus (R), No scleral icterus (L) Respiratory: lungs clear, normal breath sounds, No decreased breath sounds, No rales, No rhonchi Cardiac/Chest: regular rate, rhythm, No bradycardia, No tachycardia, No diastolic murmur, No systolic murmur Abdomen: non-tender, soft, No distended, No guarding, No rebound, No hepatomegaly, No splenomegaly Skin: normal color, warm/dry Neuro/Psych: normal mood/affect, oriented x 3, No abnormal cerebellar tests, No abnormal community support specialist II-XII ICD10 Worksheet Patient Problems: Problems Problem Status Onset Cyclical vomiting syndrome Acute GI bleed Acute Intractable vomiting with nausea Acute Hypokalemia Acute
[2016-05-25] MEDS: OMEGA-3 FATTY ACIDS 1,000 MG CAP PO SCH (09:18)
[2016-05-25] MEDS: MULTIVITAMINS 1 EACH TAB PO SCH (09:18)
[2016-05-25] MEDS: LORazepam 1 MG TAB PO PRN (09:23)
[2016-05-25 11:38] VITALS: BP 105/68; PULSE 80; RESP 14; O2SAT 95
--- NOTE | 2016-05-25 15:14 | WOCRNPDOC ---
[facility] Advanced Assessment Note - Ileostomy Assessment, Advanced Right Upper Abdomen Ileostomy Appliance Intact: Yes Ileostomy Appliance Currently in Use: Two Piece Flat ([employer], patient's own from home), 2 02/28, Cut to Fit Peristomal Skin: Erythematic, Denuded Peristomal Skin Complications: Irritant Contact Dermatitis Ileostomy Comment/Treatment Details: Patient requested wound/ostomy consult regarding some redness she noted on her sarah-stomal skin. I went to assess the site, and she was able to peel back the adhesive backing for me to see her skin without removing the entire ostomy appliance. There is distinct erythema and mildly denuded skin where the tape contacts the skin, indicative of an irritant contact dermatitis. I suspect this rash could be caused by adhesive in the tape surrounding her barrier wafer. I supplied the patient with 2 Ponderosa barriers without tape borders, in addition to 2 pouches. I also supplied her with a [employer] catalog and a pamphlet for [facility], so that she can have a resource to contact in the outpatient setting. Report given to side puller Emma.
--- NOTE | 2016-05-25 17:58 | GDS ---
[f rep st] DISCHARGE SUMMARY NEW AND ACUTE DIAGNOSES THIS ADMISSION: 1. Esophageal ulceration with nausea, vomiting, and melena. 2. Ulcerative colitis. 3. Cyclic nausea and vomiting, possibly secondary to the esophageal ulceration. 4. Hypokalemia, now resolved at the time of discharge. 5. Anemia with a discharge hemoglobin of 10.2. CONSULTATION: Gastroenterology. PROCEDURES: EGD showing ulcerative esophagitis, gastritis, and a hiatal hernia. In the distal esop hagus, a circumferential ulceration was seen consistent with LA grade D esophagitis. HOSPITAL COURSE: This is a 60-year-old female with a known history of ulcerative colitis and period ic cyclic nausea and vomiting, presented with nausea and vomiting. She was also noted to have melan otic stools, but an admission hemoglobin of 14. EGD showed findings of a circumferential ulceration in the distal esophagus. The feeling was that this was likely the cause of her nausea, vomiting, a nd melena. She was treated with IV Protonix on a b.i.d. basis and did in fact improve. She was abl e to tolerate initially a clear liquid diet and then a full diet without vomiting. Potassium was re pleted appropriately. Her hemoglobin fell from 14 to 10.2, but she had no further signs of melena i n her ostomy bag. The findings were discussed, her progression discussed with Gastroenterology, and the patient decide d that she would like to be treated as an outpatient. DISCHARGE MEDICATIONS: New medications are Protonix 40 mg p.o. b.i.d.; lorazepam 1 mg p.o. b.i.d. p .r.n., #12; Phenergan 25 mg tablets 1/2 to 1 p.o. 16h p.r.n. nausea. Continued medications are herbal supplementation, multivitamin, [place]-3 fatty acids, chlorpromazine 25 mg p.o. q.6 hours p.r.n. nausea, Zofran 8 mg p.o. q.6 hours p.r.n. nausea. PLAN ON DISCHARGE: Patient is discharged to home and her home care. Her followup will be with Dr. Santi Gonsales, her primary care provider, or River Giron M.D. she will see Dr. Giron in 1 to 2 weeks. Note that I have given her 3 different nausea medications, as she felt this may be necessary. She w ill pick and choose which one she uses. TIME: This discharge required 45 minutes greater than 50% to parliamentary counsel and coordinate her care. Note also that I have spoken with her brother in [place] and related these findings. /[id number]/MODL
== END 2016-05-25 16:50 | disposition home or self-care (01) | DRG 381 ==
LOC: INTOOBSV 13:01 → F3E 14:20 → OBSVTOIN 05-24 17:22
PROVIDERS: ADMIT Internal Medicine; ATTEND Internal Medicine Pulmonary Disease
DX: K22.10 Ulcer of esophagus without bleeding (principal); K51.90 Ulcerative colitis, unspecified, without complications; G43.A1 Cyclical vomiting, in migraine, intractable; E87.6 Hypokalemia; K44.9 Diaphragmatic hernia without obstruction or gangrene; D64.9 Anemia, unspecified; F12.90 Cannabis use, unspecified, uncomplicated; Z93.2 Ileostomy status
CPT/HCPCS: 96365; G0378; J2060; J2250; J2405; J2704; J3010